=== PATIENT | female | born 1970 | race African-American/Black ===

== ENCOUNTER 2016-10-28 18:16 | Emergency (ER) | payer OTHER ==
[~2016-10-28] VITALS: Ht 167.6 cm; Wt 79.1 kg
[~2016-10-28 18:16] MED LIST: ASPIR 8181 M1 PO; FLEXERIL10 MG PO; LAMICTAL100 MG PO; LAMOTRIGINE200 MG PO; MOTRIN600 MG PO; NEURONTIN100 MG PO; PRAVACHOL40 MG PO; PREDNISONE10 MG PO; PREDNISONE50 MG PO; VALIUM5 MG PO; VALTREX50 MG/ML PO; XANAX0.25 MG PO; ZOLOFT50 MG PO
[2016-10-28 19:00] VITALS: BP 126/85
== END 2016-10-28 19:49 | disposition left against medical advice (07) ==
LOC: EME 18:16
DX: R06.02 Shortness of breath (principal); Z53.20 Procedure and treatment not carried out because of patient's decision for unspecified reasons; R56.9 Unspecified convulsions; Z86.73 Personal history of transient ischemic attack (TIA), and cerebral infarction without residual deficits
CPT/HCPCS: 80048; 85027; 93005; 99281; 99283

== ENCOUNTER 2016-12-24 11:25 | Emergency (ER) | payer OTHER ==
[~2016-12-24] VITALS: Ht 165.1 cm; Wt 75.9 kg
[2016-12-24 12:03] LABS: EOSINOPHIL (%) 1.8 % (0-5); EOSINOPHIL COUNT 0.1 K/uL (0-0.3); HEMATOCRIT 41.8 % (36.0-46.0); IMMATURE GRANULOCYTE (%) 0.1 % (0.0-0.7); INSTRUMENT ABS NEUTROPHIL CT 4.8 K/uL; LYMPHOCYTE COUNT 1.8 K/uL (1.0-2.8); MCH 28.4 PG (29.0-34.0); MCHC 32.8 G/DL (30.0-36.0); MCV 86.7 FL (83-99); MEAN PLAT.VOLUME 11.5 uM^3 (9.5-12.4); MONOCYTE (%) 6.4 % (3-12); MONOCYTE COUNT 0.5 K/uL (0-0.8); NEUTROPHIL (%) 66.2 % (45-76); NEUTROPHIL COUNT 4.8 K/uL (1.8-6.4); PLATELET COUNT 329 K/uL (156-360); RBC DIS.WIDTH-CV 14.1 % (11.8-14.6); RBC DIS.WIDTH-SD 41.8 % (39-53); RED BLOOD COUNT 4.82 M/uL (3.80-5.20); WHITE BLOOD COUNT 7.2 K/uL (4.1-10.2)
[2016-12-24 12:11] LABS: CHLORIDE 108 mEq/L (99-109); POTASSIUM 3.6 mEq/L (3.7-5.4); SODIUM 140 mEq/L (136-147)
[2016-12-24 12:13] LABS: GLUCOSE 89 mg/dL (70-99)
[2016-12-24 12:15] LABS: ANION GAP 11 MEQ/L (2-14)
[2016-12-24 12:17] LABS: GFR ESTIMATE (CALCULATED) > 59 mL/min/
[2016-12-24 12:18] LABS: UREA NITROGEN (BUN) 5 mg/dL (9-23)
[2016-12-24] MEDS ORDERED: ANTIVERT25 MG PO (14:00)
[2016-12-24 14:28] VITALS: BP 129/81
== END 2016-12-24 14:38 | disposition home or self-care (01) ==
LOC: EME → EDBD 11:25 → EME 14:38
PROVIDERS: Emergency Medicine
DX: R42 Dizziness and giddiness (principal); M54.2 Cervicalgia; G40.909 Epilepsy, unspecified, not intractable, without status epilepticus; G35 Multiple sclerosis; F41.9 Anxiety disorder, unspecified; Z86.73 Personal history of transient ischemic attack (TIA), and cerebral infarction without residual deficits
CPT/HCPCS: 70450; 72040; 80048; 85025; 87070; 87205; 89051; 93005; 99281; 99284; J1885; J2405; J7030; J7040

== ENCOUNTER 2017-01-02 23:29 | Observation (INO) | payer OTHER ==
[~2017-01-02] VITALS: Ht 165.1 cm; Wt 82.3 kg
[~2017-01-02 23:29] MED LIST changes: +ANTIVERT25 MG PO; -NEURONTIN100 MG PO; +NEURONTIN600 MG PO
[2017-01-03] VITALS (7 sets, daily range): BP systolic 117–149; BP diastolic 58–74
[2017-01-03 00:08] LABS: PROTHROMBIN TIME 11.4 SEC (10.2-12.9)
[2017-01-03 00:10] LABS: PTT 33.1 SEC (25-37)
[2017-01-03 00:11] LABS: CHLORIDE 108 mEq/L (99-109); POTASSIUM 3.6 mEq/L (3.7-5.4); SODIUM 139 mEq/L (136-147)
[2017-01-03 00:13] LABS: GLUCOSE 124 mg/dL (70-99)
[2017-01-03 00:15] LABS: ANION GAP 9 MEQ/L (2-14)
[2017-01-03 00:17] LABS: GFR ESTIMATE (CALCULATED) > 59 mL/min/
[2017-01-03 00:18] LABS: UREA NITROGEN (BUN) 9 mg/dL (9-23)
[2017-01-03 00:23] LABS: TROP-I INTERPRETATION NEGATIVE; TROPONIN-I < 0.01 ng/mL (0.0-0.30)
[2017-01-03] MEDS ORDERED: VITRON-C TABLE1 EACH PO (00:34)
[2017-01-03 00:56] LABS: HEMATOCRIT 41.7 % (36.0-46.0); IMM.PLATELET FRACTION 7.2 (1-7); MCH 29.3 PG (29.0-34.0); MCHC 33.3 G/DL (30.0-36.0); MEAN PLAT.VOLUME 11.8 uM^3 (9.5-12.4); PLATELET COUNT 298 K/uL (156-360); RBC DIS.WIDTH-CV 13.4 % (11.8-14.6); RBC DIS.WIDTH-SD 42.1 % (39-53); RED BLOOD COUNT 4.74 M/uL (3.80-5.20); WHITE BLOOD COUNT 10.9 K/uL (4.1-10.2)
[2017-01-03 02:56] LABS: HDL CHOLESTEROL 40 MG/DL (Desirable>=50); LDL CHOLESTEROL 93 mg/dL (Desirable<100); NON-HDL CHOLESTEROL 136 mg/dL (Desirable<160); TOTAL CHOLESTEROL 176 mg/dL (Desirable<200); TRIGLYCERIDES 215 MG/DL (Normal: <150)
[2017-01-03 08:16] LABS: Estimated Average Glucose 123 mg/dL (70-123); HEMOGLOBIN A1c (GLYCOHEMOGLOB) 5.9 % HGB (Below 5.7)
[2017-01-04 03:37] VITALS: BP 115/65
[2017-01-04 07:39] VITALS: BP 118/67
[2017-01-04 11:58] VITALS: BP 142/66
== END 2017-01-04 14:18 ==
LOC: EME 23:29 → EDOF 01-03 01:06 → CANRESERV 01-03 01:12 → ENRESERV 01-03 01:12 → 5SOUTH 01-03 03:57 → ENPENDDIS 01-04 → 5SOUTH 01-04 14:18
PROVIDERS: Emergency Medicine; Physician Assistant Medical; Psychiatry & Neurology Clinical Neurophysiology
DX: G40.409 Other generalized epilepsy and epileptic syndromes, not intractable, without status epilepticus (principal); R20.0 Anesthesia of skin; M62.81 Muscle weakness (generalized); H53.2 Diplopia; Z86.73 Personal history of transient ischemic attack (TIA), and cerebral infarction without residual deficits
CPT/HCPCS: 70450; 70496; 70498; 70553; 71010; 80048; 80061; 80175 90; 83036; 84484; 85027; 85610; 85651; 85730; 86038; 93005; 99281; 99285; G0378; G8978 GP CJ; G8979 GP CI; G8980 CJ; G8987 GO CI; G8988 GO CH; G8989 GO CI; J1650; J2060

== ENCOUNTER 2017-01-30 09:56 | Emergency (ER) | payer OTHER ==
[~2017-01-30] VITALS: Ht 165.1 cm; Wt 75.3 kg
[~2017-01-30 09:56] MED LIST changes: +VITRON-C TABLE1 EACH PO
[2017-01-30 11:23] LABS: ADD MIUA? YES; BILIRUBIN NEGATIVE; BLOOD SMALL; COLOR STRAW ((YELLOW)); GLUCOSE (STRIP) NEGATIVE; KETONES NEGATIVE; LEUKOCYTES TRACE; NITRITE NEGATIVE; PROTEIN (STRIP) NEGATIVE; SPECIFIC GRAVITY 1.005 (1.000-1.030); UROBILINOGEN 0.2 MG/DL (0.2-1.0)
[2017-01-30 11:26] LABS: BACTERIA RARE /HPF; CALCIUM OXALATE CRYSTALS 1+ /HPF; EPITHELIAL CELLS 1+ /HPF; MUCUS TRACE /LPF; RED BLOOD CELLS 0-5 /HPF (0-5); UCUL ADDED? NO; WHITE BLOOD CELLS 0-5 /HPF (0-5)
[2017-01-30 12:15] LABS: EOSINOPHIL (%) 0.9 % (0-5); EOSINOPHIL COUNT 0.1 K/uL (0-0.3); IMMATURE GRANULOCYTE (%) 0.1 % (0.0-0.7); INSTRUMENT ABS NEUTROPHIL CT 5.3 K/uL; LYMPHOCYTE COUNT 1.9 K/uL (1.0-2.8); MCH 29.2 PG (29.0-34.0); MCHC 32.9 G/DL (30.0-36.0); MEAN PLAT.VOLUME 12.2 uM^3 (9.5-12.4); MONOCYTE (%) 6.3 % (3-12); MONOCYTE COUNT 0.5 K/uL (0-0.8); NEUTROPHIL (%) 68.1 % (45-76); NEUTROPHIL COUNT 5.3 K/uL (1.8-6.4); PLATELET COUNT 311 K/uL (156-360); RBC DIS.WIDTH-CV 13.4 % (11.8-14.6); RBC DIS.WIDTH-SD 43.7 % (39-53); RED BLOOD COUNT 4.72 M/uL (3.80-5.20); WHITE BLOOD COUNT 7.8 K/uL (4.1-10.2)
[2017-01-30 12:25] LABS: CHLORIDE 108 mEq/L (99-109); POTASSIUM 3.6 mEq/L (3.7-5.4); SODIUM 137 mEq/L (136-147)
[2017-01-30 12:26] LABS: GLUCOSE 102 mg/dL (70-99)
[2017-01-30 12:28] LABS: ANION GAP 6 MEQ/L (2-14)
[2017-01-30 12:30] LABS: GFR ESTIMATE (CALCULATED) > 59 mL/min/
[2017-01-30 12:31] LABS: UREA NITROGEN (BUN) 6 mg/dL (9-23)
[2017-01-30 12:36] LABS: TROP-I INTERPRETATION NEGATIVE; TROPONIN-I < 0.01 ng/mL (0.0-0.30)
[2017-01-30] MEDS ORDERED: ADVIL200 MG PO (12:41)
[2017-01-30 13:58] VITALS: BP 141/94
== END 2017-01-30 13:58 | disposition left against medical advice (07) ==
LOC: EME 09:56
PROVIDERS: Emergency Medicine
DX: G45.9 Transient cerebral ischemic attack, unspecified (principal); G35 Multiple sclerosis; G40.909 Epilepsy, unspecified, not intractable, without status epilepticus; F41.9 Anxiety disorder, unspecified
CPT/HCPCS: 70450; 80048; 81003; 84484; 85025; 93005; 99281; 99284

== ENCOUNTER 2017-02-10 12:26 | Emergency (ER) | payer OTHER ==
[~2017-02-10] VITALS: Ht 165.1 cm; Wt 77.3 kg
[~2017-02-10 12:26] MED LIST changes: +ADVIL200 MG PO
[2017-02-10 13:37] LABS: EOSINOPHIL (%) 1.7 % (0-5); EOSINOPHIL COUNT 0.1 K/uL (0-0.3); HEMATOCRIT 42.1 % (36.0-46.0); IMMATURE GRANULOCYTE (%) 0.4 % (0.0-0.7); INSTRUMENT ABS NEUTROPHIL CT 5.1 K/uL; LYMPHOCYTE COUNT 1.7 K/uL (1.0-2.8); MCH 29.4 PG (29.0-34.0); MCV 89.2 FL (83-99); MEAN PLAT.VOLUME 11.6 uM^3 (9.5-12.4); MONOCYTE COUNT 0.5 K/uL (0-0.8); NEUTROPHIL (%) 68.1 % (45-76); NEUTROPHIL COUNT 5.1 K/uL (1.8-6.4); PLATELET COUNT 278 K/uL (156-360); RBC DIS.WIDTH-CV 13.4 % (11.8-14.6); RBC DIS.WIDTH-SD 43.9 % (39-53); RED BLOOD COUNT 4.72 M/uL (3.80-5.20); WHITE BLOOD COUNT 7.5 K/uL (4.1-10.2)
[2017-02-10 13:45] LABS: CHLORIDE 107 mEq/L (99-109); POTASSIUM 3.7 mEq/L (3.7-5.4); SODIUM 142 mEq/L (136-147)
[2017-02-10 13:47] LABS: GLUCOSE 106 mg/dL (70-99)
[2017-02-10 13:48] LABS: ANION GAP 13 MEQ/L (2-14)
[2017-02-10 13:51] LABS: GFR ESTIMATE (CALCULATED) > 59 mL/min/
[2017-02-10 13:52] LABS: UREA NITROGEN (BUN) 6 mg/dL (9-23)
[2017-02-10 15:55] VITALS: BP 145/76
== END 2017-02-10 15:55 | disposition home or self-care (01) ==
LOC: EME 12:26
PROVIDERS: Emergency Medicine
DX: G40.909 Epilepsy, unspecified, not intractable, without status epilepticus (principal); G35 Multiple sclerosis; F41.9 Anxiety disorder, unspecified; Z86.73 Personal history of transient ischemic attack (TIA), and cerebral infarction without residual deficits
CPT/HCPCS: 70450; 80048; 85025; 99281; 99285